=== PATIENT | female | born 1995 | race Two or more races ===

== ENCOUNTER 2018-02-04 03:11 | Emergency (ER) | payer MEDICAID ==
[~2018-02-04] VITALS: Ht 165.1 cm; Wt 59.0 kg
[2018-02-04 03:54] LABS: Basophils # (auto) 0.1 uL; Basophils % (auto) 0.4 % (0.0-2.0); Eosinophils # (auto) 0 uL; Eosinophils % (auto) 0.1 % (0.0-7.0); Hematocrit 33.3 % (36.0-46.0); Hemoglobin 10.8 g/dL (12.2-16.2); Lymphocytes # (auto) 0.9 uL; Lymphocytes % (auto) 5.1 % (10.0-50.0); Mean Corpuscular Hemoglobin 27.8 pg (28.0-32.0); Mean Corpuscular Hgb Conc. 32.6 g/dL (32.0-36.0); Mean Corpuscular Volume 85.2 fL (80.0-100.0); Monocytes # (auto) 0.9 uL; Monocytes % (auto) 5.3 % (0.0-12.0); Neutrophils # (auto) 15.5 uL; Neutrophils % (auto) 89.1 % (37.0-80.0); Platelet Count (auto) 280 10^3/uL (140-450); Red Cell Distribution Width 13.1 % (11.8-14.3); White Blood Cell 17.4 10^3/uL (4.4-10.8)
[2018-02-04 04:02] LABS: Potassium 3.6 mmol/L (3.5-5.1)
[2018-02-04 04:06] LABS: Albumin 3.5 g/dL (3.4-5.0); BUN/Creatinine Ratio 19.4; Calcium 8.9 mg/dL (8.5-10.1)
[2018-02-04 04:09] LABS: Bilirubin, Total 0.3 mg/dL (0.2-1.0); Total Protein 7.1 g/dL (6.4-8.2)
[2018-02-04 05:18] LABS: Partial Thromboplastin Time 23.1 sec (22.64-33.71); Prothrombin Time 10.9 sec (9.37-12.3)
[2018-02-04 06:53] LABS: Urine Bacteria NONE SEEN /hpf (None Seen); Urine Blood Negative /uL (Negative); Urine Mucus FEW (None Seen); Urine WBC 3 /hpf (0 - 5)
[2018-02-04] MEDS ORDERED: SODIUM CHLORIDE 0.9% 1,000 ML IVB ONE (08:36)
[2018-02-04 10:00] VITALS: BP 115/69
== END 2018-02-04 14:24 | disposition home or self-care (01) ==
LOC: EDUNIT# 03:11 → ER 03:11
DX: N92.0 Excessive and frequent menstruation with regular cycle (principal)
CPT/HCPCS: 36415; 76856; 80053; 81001; 84702; 85025; 85610; 85730; 96360; 96361; 99285; J7030

== ENCOUNTER 2022-02-03 22:17 | Emergency (ER) | payer MEDICAID ==
[~2022-02-03] VITALS: Ht 165.1 cm; Wt 51.7 kg
[2022-02-03] MEDS ORDERED: IBUPROFEN 600 MG TAB PO ONE (22:30)
[2022-02-04 01:23] VITALS: BP 109/66
== END 2022-02-04 01:40 | disposition home or self-care (01) ==
LOC: ER 22:19
DX: S16.1XXA Strain of muscle, fascia and tendon at neck level, initial encounter (principal); S09.8XXA Other specified injuries of head, initial encounter; Z32.02 Encounter for pregnancy test, result negative; W18.39XA Other fall on same level, initial encounter; Y93.89 Activity, other specified; Y92.89 Other specified places as the place of occurrence of the external cause; Y99.8 Other external cause status
CPT/HCPCS: 70450; 72125; 81025